=== PATIENT | male | born 1940 | race Two or more races ===

== ENCOUNTER 2018-07-18 09:14 | Inpatient (IN) | payer BC, OTHER ==
[~2018-07-18] VITALS: Ht 167.6 cm; Wt 59.9 kg
--- NOTE | 2018-07-18 09:15 | NUR ---
AAOX3, BIB DAUGHTER FROM HOME C/O HEAD LACERATION S/P SYNCOPAL EPISODE. PATIENT WAS WASHING THE DISHES AND NEXT THING, HE WAS LAYING ON THE FLOOR WITH LACERATION ON TOP OF HIS HEAD. RR IS EVEN AND UNLABORED WITH NAD NOTED. SKIN IS WARM AND DRY. AWAITING MD FOR EVAL.
[2018-07-18] MEDS ORDERED: TDAP [DIPH/PERTUSSIS/TET] 0.5 ML VIAL IM ONE ×2 (10:00→10:14)
[2018-07-18] MEDS ORDERED: IV NS 0.9% 1,000 ML BAG IV ONE (10:00)
[2018-07-18 10:06] LABS: BASOPHILS % (AUTO) 0.8 % (0.0-2.0); EOSINOPHILS % (AUTO) 0.5 % (0.0-6.0); HEMATOCRIT 41 % (39-51); LYMPHOCYTES # (AUTO) 0.6 /CMM (0.8-4.8); LYMPHOCYTES % (AUTO) 11.4 % (20.0-44.0); MEAN CORPUSCULAR HGB CONC 34 g/dl (31.0-36.0); MEAN CORPUSCULAR VOLUME 91 fL (80-96); MONOCYTES # (AUTO) 0.5 /CMM (0.1-1.30); MONOCYTES % (AUTO) 10.6 % (2.0-12.0); NEUTROPHILS # (AUTO) 3.9 /CMM (1.8-8.9); NEUTROPHILS % (AUTO) 76.7 % (43.0-81.0); PLATELET COUNT (AUTO) 192 /CMM (150-450); RED BLOOD CELL COUNT(AUTO) 4.53 MIL/uL (4.5-6.0); WHITE BLOOD COUNT (AUTO) 5.1 K/uL (4.3-11.0)
[2018-07-18 10:12] LABS: CALCIUM, SERUM 8.3 mg/dL (8.5-10.1); CARBON DIOXIDE 28 mmol/L (21-32); CHLORIDE 102 mmol/L (98-107); CREATININE 1.3 mg/dL (0.6-1.3); GLUCOSE 79 mg/dL (74-106); POTASSIUM 4.1 mmol/L (3.5-5.1); SODIUM SERUM 137 mmol/L (136-145); UREA NITROGEN, BLOOD 15 mg/dL (7-18)
[2018-07-18 10:19] LABS: ALANINE AMINOTRANSFERASE 19 U/L (12-78); ALBUMIN 3.7 g/dL (3.4-5.0); ALKALINE PHOSPHATASE 78 U/L (46-116); ASPARTATE AMINOTRANSFERASE 22 U/L (15-37); BILIRUBIN,DIRECT 0.2 mg/dL (0.0-0.2); BILIRUBIN,TOTAL 0.9 mg/dL (0.2-1.0); LIPASE 226 U/L (73-393); TOTAL PROTEIN, SERUM 7.1 g/dL (6.4-8.2)
[2018-07-18 10:50] LABS: APPEARANCE,URINE Clear (CLEAR); BILIRUBIN,URINE Negative (NEGATIVE); BLOOD, URINE Negative Ery/uL (NEGATIVE); COLOR,URINE Yellow (YELLOW); KETONES,URINE Negative (NEGATIVE); LEUKOCYTE ESTERASE ,URINE Negative (NEGATIVE); NITRITE, URINE Negative (NEGATIVE); PH,URINE 7.5 (5.0-8.0); PROTEIN,URINE Negative (NEGATIVE); UGLUCOSE Negative (NEGATIVE)
--- NOTE | 2018-07-18 10:53 | NUR ---
PATIENT WILL GO TO 310-1 (NERISSA LIM).
[2018-07-18 10:55] LABS: BACTERIA,URINE None seen /HPF (None Seen); RBC,URINE 0-3 /HPF (0-2); SQUAMOUS EPITHELIAL CELL,UR Few /HPF (None Seen)
--- NOTE | 2018-07-18 11:01 | NUR ---
Paged Linda Guerrero AMUSEMENT PARK ENTERTAINER for admission
[2018-07-18] MEDS ORDERED: IV NS 0.9% 1,000 ML IV PRN (11:58)
[2018-07-18] MEDS ORDERED: HYDROCODONE/APAP 5/325MG 1 EACH TABLET PO PRN (12:00)
[2018-07-18] MEDS ORDERED: ACETAMINOPHEN 325 MG TABLET PO PRN (12:00)
[2018-07-18] MEDS ORDERED: MAG HYDROX/AL HYDROX/SIMETH 30 ML UDC PO PRN (12:00)
[2018-07-18] MEDS ORDERED: ONDANSETRON HCL/PF 4 MG/2 ML VIAL IVP PRN (12:00)
[2018-07-18] MEDS ORDERED: MAGNESIUM HYDROXIDE 30 ML UDC PO PRN (12:00)
[2018-07-18] MEDS ORDERED: Z GUARD REMEDY 2 OZ OINT TP PRN (12:00)
--- NOTE | 2018-07-18 13:38 | NUR ---
Patient is resting comfortably in bed with eyes closed. Easily aroused. VSS
--- NOTE | 2018-07-18 14:47 | NUR ---
REPORT GIVEN TO NERISSA LIM FOR LAUREL TELE 310
--- NOTE | 2018-07-18 15:40 | NUR ---
WEB PRESS OPERATOR HELPER OFFSETMULTI OPERATION MACHINE OPERATOR NOTES Patient received from ER via hospital bed for Syncope under the care of Munira Guerrero. Alert and oriented x4, verbally responsive. Denies any pain/discomfort noted. IV on right antecubital 20G with no bleeding noted: patent and intact. Skin body assessment done. Patient is ambulatory with assist for safety precaution. No SOB/labored breathing noted or reported. Patient is stable in room air. Patient is displaying no s/s of distress. Safety precaution implemented and observed. Bed in locked and lowest position with call light within reach. Will continue to monitor and assess patient. Addendum: 07/18/18 at 1916 by KENZIE MIX RN TELE: Sinus Rhythm 66
--- NOTE | 2018-07-18 18:25 | NUR ---
[employer] CLOSING NOTES Patient remained in bed, awake, comfortable. Alert and oriented x4, verbally responsive. Denies any pain at the moment. Not in any type of distress. No SOB/labored breathing noted. Kept patient clean and dry. Encouraged to increase oral fluid intake. All needs provided and met. All due meds given and tolerated. Safety measures implemented and observed. Bed in locked and lowest position with call light within reach and bed alarm on. Will endorse to oncoming shift nurse. TELE: NORMAL SINUS RHYTHM 75 Addendum: 07/18/18 at 1855 by KENZEI MIX RN 128/49 75 18 98.2 99%RA Addendum: 07/18/18 at 1919 by KENZIE MIX RN Endorsed
--- NOTE | 2018-07-18 19:49 | NUR ---
TELE/RN RECEIVE PATIENT AWAKE, ALERT, ORIENTED, COMFORTABLE, NO C/O PAIN, NO DISTRESS NOTED, CALL LIGHT IN REACH. FALL PRECAUTION PER PROTOCOL DUE TO SYNCOPAL EPISODE AT HOME. WILL MONITOR.
[2018-07-18 20:00] VITALS: BP 149/76
[2018-07-19] VITALS: BP 143/74
[2018-07-19 04:00] VITALS: BP 143/75
--- NOTE | 2018-07-19 06:58 | NUR ---
TELE/RN PATIENT IS AWAKE, COMFORTABLE, NO DISTRESS NOTED, HAD AN ON AND OFF SLEEP THE WHOLE SHIFT DUE TO FREQUENT TOILETING, ALL NEEDS ATTENDED AT THIS TIME. WILL CONTINUE TO [place].
[2018-07-19 07:17] LABS: BASOPHILS % (AUTO) 0.8 % (0.0-2.0); EOSINOPHILS % (AUTO) 1.9 % (0.0-6.0); HEMATOCRIT 40 % (39-51); HEMOGLOBIN 13.5 g/dL (13.5-17.5); LYMPHOCYTES # (AUTO) 0.8 /CMM (0.8-4.8); LYMPHOCYTES % (AUTO) 15.6 % (20.0-44.0); MEAN CORPUSCULAR HGB CONC 34 g/dl (31.0-36.0); MEAN CORPUSCULAR VOLUME 91 fL (80-96); MONOCYTES # (AUTO) 0.6 /CMM (0.1-1.30); MONOCYTES % (AUTO) 11.3 % (2.0-12.0); NEUTROPHILS # (AUTO) 3.6 /CMM (1.8-8.9); NEUTROPHILS % (AUTO) 70.4 % (43.0-81.0); PLATELET COUNT (AUTO) 177 /CMM (150-450); RED BLOOD CELL COUNT(AUTO) 4.43 MIL/uL (4.5-6.0); WHITE BLOOD COUNT (AUTO) 5.2 K/uL (4.3-11.0)
--- NOTE | 2018-07-19 07:30 | NUR ---
ARMATURE REWINDER OPENING NOTES RECEIVE PATIENT AWAKE, ALERT, ORIENTED, NO DISTRESS NOTED, R AC #20 INTACT.CALL LIGHT IN REACH. SR 72. WILL CONTINUE TO MONITOR
[2018-07-19 07:40] LABS: CARBON DIOXIDE 26 mmol/L (21-32); CHLORIDE 107 mmol/L (98-107); CREATININE 1.1 mg/dL (0.6-1.3); GLUCOSE 90 mg/dL (74-106); PHOSPHORUS 3.2 mg/dL (2.5-4.9); POTASSIUM 4.4 mmol/L (3.5-5.1); SODIUM SERUM 141 mmol/L (136-145); UREA NITROGEN, BLOOD 14 mg/dL (7-18)
[2018-07-19 07:47] LABS: CHOLESTEROL 177 mg/dL (<200); HDL CHOLESTEROL 69 mg/dL (40-60); LDL 106 mg/dL (0-99); THYROID STIMULATING HORMONE 1.105 uIU/mL (0.358-3.74); TRIGLYCERIDES 27 mg/dL (30-150)
[2018-07-19 08:00] VITALS: BP 135/69
[2018-07-19 16:00] VITALS: BP 136/66
--- NOTE | 2018-07-19 19:15 | NUR ---
RN NOtes Received patient awake, alert and oriented x4. HOB elevated, on room air and tolerated well. Denies any pain and discomfort. IV access on right AC patent and intact with ongoing IVF infusing well. Safety measures and fall precaution in place. Will continue to monitor patient.
--- NOTE | 2018-07-19 19:30 | NUR ---
Patient remained in bed, awake, comfortable. Alert and oriented x4, verbally responsive. Denies any pain at the moment. Not in any type of distress. No SOB/labored breathing noted. d/c once cleared by neurologist.
[2018-07-19 20:00] VITALS: BP 133/58
--- NOTE | 2018-07-19 20:08 | NUR ---
RN Notes Per report from the AM nurse patient is awaiting for the neurologist to be seen before discharge. Son is at bedside, asking if the patient will be seen tonight? Followed up with the neurologist earth observations chief scientist, Sally Powell NP. She said that she will see the patient first thing in the morning around 9 AM. Patient made aware and son Clarence notified.
--- NOTE | 2018-07-19 20:30 | NUR ---
RN Notes Dr Malik came, seen and examined patient.
[2018-07-19] MEDS ORDERED: ATOR10TA PO (21:12)
[2018-07-19] MEDS ORDERED: ASPI-1152 PO (21:12)
--- NOTE | 2018-07-19 21:15 | NUR ---
RN Notes Discharge order received from Munira Cortez CAP SIZER after patient was cleared by PT, Cardio and Neurology. Patient made barrera. Son, Clarence was called and notified to pick up truck driver the patient.
--- NOTE | 2018-07-19 21:50 | NUR ---
RN Notes Patient awake, alert and oriented x4, on room air and tolerated well. Denies any pain and discomfort. Vital signs stable. Discharge instructions given to patient and son, Karim and verbalized understanding. All belongings complete and sent with the patient, belongings list signed. IV access removed and pressure dressing applied. Discharged patient with son, ambulatory in stable condition.
[2018-07-19] MEDS ORDERED: ATORVASTATIN 10 MG TABLET PO SCH (22:00)
[2018-07-20] MEDS ORDERED: ASPIRIN EC 81 MG TABLET.DR PO SCH (09:00)
== END 2018-07-19 21:50 | disposition home or self-care (01) | DRG 312 ==
LOC: ER 09:17 → TELE 15:08 → MED 07-19 19:50
PROVIDERS: ADMIT Registered Nurse; ATTEND Registered Nurse
DX: R55 Syncope and collapse (principal); I50.32 Chronic diastolic (congestive) heart failure; R00.1 Bradycardia, unspecified; S01.01XA Laceration without foreign body of scalp, initial encounter; W18.30XA Fall on same level, unspecified, initial encounter; Y93.G1 Activity, food preparation and clean up; Y92.000 Kitchen of unspecified non-institutional (private) residence as the place of occurrence of the external cause; Z85.828 Personal history of other malignant neoplasm of skin; Z85.46 Personal history of malignant neoplasm of prostate; Z90.79 Acquired absence of other genital organ(s); M25.552 Pain in left hip
CPT/HCPCS: 36415; 70450-TC; 71045-TC; 73502; 80048-TC; 80061-TC; 80076-TC; 81000-TC; 83690-TC; 83735-TC; 84100-TC; 84443-TC; 84484-TC; 85025-TC; 87081-TC; 87086-TC; 90715; 93307-TC; 93880-TC; A6402; A6403; G0378; J7030

== ENCOUNTER 2020-04-03 09:20 | Emergency (ER) | payer OTHER ==
[~2020-04-03] VITALS: Ht 167.6 cm; Wt 64.9 kg
[~2020-04-03 09:20] MED LIST: ASPI-1420 PO; ATOR10TA PO
--- NOTE | 2020-04-03 09:22 | NUR ---
PT BIB SON, AMBULATORY TO ER BED 07 C/O R SIDED FLANK PAIN AND DIFFICULTY URINATING FOR THE PAST 3 DAYS. NO OTHER COMPLAINTS ENDORSED. STABLE VITALS. AWAITING MD ZAYAS.
--- NOTE | 2020-04-03 09:28 | NUR ---
Tanesha perrin in [facility] - 04/03/[address] GUERRA AT [facility] FOR
--- NOTE | 2020-04-03 09:37 | NUR ---
PT TO RADIOLOGY FOR ABDOMEN/PELVIS CT SCAN VIA WHEELCHAIR.
[2020-04-03] MEDS ORDERED: ONDANSETRON HCL/PF 4 MG/2 ML VIAL ONE (09:40)
[2020-04-03] MEDS: IV NS 0.9% 500 ML BAG IV ONE (09:56)
[2020-04-03] MEDS: ONDANSETRON HCL/PF 4 MG/2 ML VIAL IVP ONE (09:58)
[2020-04-03 10:00] LABS: BASOPHILS # (AUTO) 0.1 /CMM (0.0-0.2); EOSINOPHILS % (AUTO) 0.6 % (0.0-6.0); HEMATOCRIT 37 % (39-51); LYMPHOCYTES # (AUTO) 1.3 /CMM (0.8-4.8); LYMPHOCYTES % (AUTO) 23.1 % (20.0-44.0); MEAN CORPUSCULAR HGB CONC 33 g/dl (31.0-36.0); MEAN CORPUSCULAR VOLUME 87 fL (80-96); MONOCYTES # (AUTO) 0.7 /CMM (0.1-1.30); NEUTROPHILS # (AUTO) 3.5 /CMM (1.8-8.9); NEUTROPHILS % (AUTO) 63.3 % (43.0-81.0); PLATELET COUNT (AUTO) 254 /CMM (150-450); RED BLOOD CELL COUNT(AUTO) 4.24 MIL/uL (4.5-6.0); WHITE BLOOD COUNT (AUTO) 5.6 K/uL (4.3-11.0)
--- NOTE | 2020-04-03 10:03 | NUR ---
DR GUERRA AT BEDSIDE FOR EVAL
[2020-04-03 10:13] LABS: ALANINE AMINOTRANSFERASE 13 U/L (12-78); ALKALINE PHOSPHATASE 108 U/L (46-116); ASPARTATE AMINOTRANSFERASE 20 U/L (15-37); BILIRUBIN,DIRECT 0.2 mg/dL (0.0-0.2); CALCIUM, SERUM 8.7 mg/dL (8.5-10.1); CARBON DIOXIDE 27 mmol/L (21-32); CHLORIDE 97 mmol/L (98-107); CREATININE 1.3 mg/dL (0.6-1.3); GLUCOSE 87 mg/dL (74-106); LIPASE 133 U/L (73-393); POTASSIUM 4.3 mmol/L (3.5-5.1); SODIUM SERUM 133 mmol/L (136-145); TOTAL PROTEIN, SERUM 7.5 g/dL (6.4-8.2); UREA NITROGEN, BLOOD 15 mg/dL (7-18)
[2020-04-03 10:29] LABS: APPEARANCE,URINE Clear (CLEAR); BILIRUBIN,URINE Negative (NEGATIVE); BLOOD, URINE Negative Ery/uL (NEGATIVE); COLOR,URINE Yellow (YELLOW); KETONES,URINE Trace (NEGATIVE); LEUKOCYTE ESTERASE ,URINE Negative (NEGATIVE); NITRITE, URINE Negative (NEGATIVE); PROTEIN,URINE Negative (NEGATIVE); UGLUCOSE Negative (NEGATIVE); UROBILINOGEN,URINE 0.2 EU/dL (0.2)
[2020-04-03 10:42] LABS: BACTERIA,URINE None seen /HPF (None Seen); RBC,URINE 0-2 /HPF (0-2); SQUAMOUS EPITHELIAL CELL,UR Few /HPF (None Seen); WBC,URINE 0-2 /HPF (0-3)
[2020-04-03 11:40] VITALS: BP 110/76
--- NOTE | 2020-04-03 11:40 | NUR ---
Patient discharged to home in stable condition. Written and verbal after care instructions given. Patient verbalizes understanding of instruction.IV removed. Catheter intact and site benign. Pressure and 4x4 applied to site. No bleeding noted.
== END 2020-04-03 11:40 | disposition home or self-care (01) ==
LOC: ER 09:24
DX: R10.84 Generalized abdominal pain (principal); R30.0 Dysuria; K59.00 Constipation, unspecified; Z98.890 Other specified postprocedural states; Z79.899 Other long term (current) drug therapy; Z79.82 Long term (current) use of aspirin
CPT/HCPCS: 36415; 71045; 74176; 80048; 80076; 81001; 83690; 84484; 85025; 85730; 93005; 96360; 99285; J7040; 81000-TC; J2405

== ENCOUNTER 2020-08-17 15:47 | Emergency (ER) | payer BC, OTHER ==
[~2020-08-17] VITALS: Ht 167.6 cm; Wt 60.8 kg
--- NOTE | 2020-08-17 15:50 | NUR ---
AZALEA, C/O WORSENING BACK PAIN X 3 WKS R/T ABDOMINAL AREA -N/V
--- NOTE | 2020-08-17 17:03 | NUR ---
DR. MCKOY AT BEDSIDE FOR EVAL.
[2020-08-17] MEDS ORDERED: MORPHINE SULFATE INJ 2 MG/ML DISP.SYRIN ONE (17:50)
[2020-08-17] MEDS ORDERED: ONDANSETRON HCL/PF 4 MG/2 ML VIAL ONE (17:50)
[2020-08-17] MEDS ORDERED: MORPHINE SULFATE INJ 2 MG/ML DISP.SYRIN IV ONE ×2 (18:00→20:30)
[2020-08-17] MEDS ORDERED: ONDANSETRON HCL/PF 4 MG/2 ML VIAL IVP ONE (18:00)
[2020-08-17 18:04] LABS: BASOPHILS # (AUTO) 0.1 /CMM (0.0-0.2); BASOPHILS % (AUTO) 1.3 % (0.0-2.0); EOSINOPHILS % (AUTO) 3.4 % (0.0-6.0); HEMATOCRIT 38 % (39-51); HEMOGLOBIN 12.3 g/dL (13.5-17.5); LYMPHOCYTES # (AUTO) 1.4 /CMM (0.8-4.8); LYMPHOCYTES % (AUTO) 25.1 % (20.0-44.0); MEAN CORPUSCULAR HGB CONC 33 g/dl (31.0-36.0); MEAN CORPUSCULAR VOLUME 87 fL (80-96); MONOCYTES # (AUTO) 0.6 /CMM (0.1-1.30); MONOCYTES % (AUTO) 11.4 % (2.0-12.0); NEUTROPHILS # (AUTO) 3.2 /CMM (1.8-8.9); NEUTROPHILS % (AUTO) 58.8 % (43.0-81.0); PLATELET COUNT (AUTO) 259 /CMM (150-450); RED BLOOD CELL COUNT(AUTO) 4.34 MIL/uL (4.5-6.0); WHITE BLOOD COUNT (AUTO) 5.4 K/uL (4.3-11.0)
[2020-08-17 18:11] LABS: CALCIUM, SERUM 8.2 mg/dL (8.5-10.1); CARBON DIOXIDE 29 mmol/L (21-32); CHLORIDE 100 mmol/L (98-107); CREATININE 1.2 mg/dL (0.6-1.3); GLUCOSE 88 mg/dL (74-106); POTASSIUM 3.9 mmol/L (3.5-5.1); SODIUM SERUM 136 mmol/L (136-145); UREA NITROGEN, BLOOD 19 mg/dL (7-18)
--- NOTE | 2020-08-17 18:15 | NUR ---
US TECH AT BEDSIDE.
[2020-08-17 18:26] LABS: ALANINE AMINOTRANSFERASE 14 U/L (12-78); ALBUMIN 3.1 g/dL (3.4-5.0); ALKALINE PHOSPHATASE 112 U/L (46-116); ASPARTATE AMINOTRANSFERASE 17 U/L (15-37); BILIRUBIN,DIRECT 0.1 mg/dL (0.0-0.2); BILIRUBIN,TOTAL 0.2 mg/dL (0.2-1.0); LIPASE 224 U/L (73-393); TOTAL PROTEIN, SERUM 7.3 g/dL (6.4-8.2)
[2020-08-17 18:27] LABS: BILIRUBIN,URINE Negative (NEGATIVE); COLOR,URINE YELLOW (YELLOW); LEUKOCYTE ESTERASE ,URINE Negative (NEGATIVE); NITRITE, URINE Negative (NEGATIVE); PROTEIN,URINE Negative (NEGATIVE); UGLUCOSE Negative (NEGATIVE); UROBILINOGEN,URINE 0.2 EU/dL (0.2)
--- NOTE | 2020-08-17 18:43 | NUR ---
CALLED RADIOLOGY FOR CT.
[2020-08-17] MEDS ORDERED: POLY17PO4 PO (20:16)
[2020-08-17] MEDS ORDERED: IBUP-1953 PO (20:17)
[2020-08-17] MEDS ORDERED: ONDANSETRON HCL/PF - ER 4 MG/2 ML VIAL IV ONE (20:30)
[2020-08-17] MEDS ORDERED: ACETAMINOPHEN ES 500 MG TABLET ONE (20:48)
[2020-08-17] MEDS ORDERED: ACETAMINOPHEN 325 MG TABLET PO ONE (21:00)
--- NOTE | 2020-08-17 21:11 | NUR ---
IV removed. Catheter intact and site benign. Pressure and 4x4 applied to site. No bleeding noted.
--- NOTE | 2020-08-17 21:11 | NUR ---
Patient discharged to home in stable condition. Written and verbal after care instructions given. Patient verbalizes understanding of instruction.
[2020-08-17 21:12] VITALS: BP 112/74
--- NOTE | 2020-08-17 21:12 | NUR ---
spoke with son regarding discharge
== END 2020-08-17 21:12 | disposition home or self-care (01) ==
LOC: ER 15:53
DX: R10.11 Right upper quadrant pain (principal); R10.31 Right lower quadrant pain; M48.54XA Collapsed vertebra, not elsewhere classified, thoracic region, initial encounter for fracture; Z98.890 Other specified postprocedural states; Z79.899 Other long term (current) drug therapy; Z79.82 Long term (current) use of aspirin
CPT/HCPCS: 36415; 71045; 74176; 76700; 80048; 80076; 81003; 83690; 84484; 85025; 85730; 93005; 96374; 96375; 99285; J2270; J2405 ×2

== ENCOUNTER 2021-02-22 09:30 | Inpatient (IN) | payer OTHER ==
[~2021-02-22] VITALS: Ht 167.6 cm; Wt 61.7 kg
[~2021-02-22 09:30] MED LIST changes: +IBUP-1953 PO; +POLY17PO4 PO
--- NOTE | 2021-02-22 09:30 | NUR ---
PT BIB SON FROM HOME C/O CHEST PRESSURE STARTED LAST NIGHT. PT IS AAOX4, NOT IN RESPIRATORY DISTRESS, HOOKED TO LEATHER TOOLER, KEPT RESTED AND COMFORTABLE. WILL CONTINUE TO MONITOR.
--- NOTE | 2021-02-22 09:44 | NUR ---
SEEN AND EXAMINED BY .
--- NOTE | 2021-02-22 09:47 | NUR ---
IV LINE ESTABLISHED BLOOD DRAWN AND SENT TO LAB.
[2021-02-22] MEDS ORDERED: ASPIRIN 325 MG TABLET ONE (09:56)
[2021-02-22] MEDS ORDERED: ASPIRIN 325 MG TABLET PO ONE (10:00)
[2021-02-22] MEDS ORDERED: NITROGLYCERIN 0.4 MG/TAB BOTTLE SL ONE (10:00)
[2021-02-22 10:04] LABS: BASOPHILS # (AUTO) 0.1 K/uL (0.0-0.2); BASOPHILS % (AUTO) 1.2 % (0.0-2.0); EOSINOPHILS % (AUTO) 1.1 % (0.0-6.0); HEMATOCRIT 43 % (39-51); HEMOGLOBIN 13.9 g/dL (13.5-17.5); LYMPHOCYTES # (AUTO) 1.8 K/uL (0.8-4.8); LYMPHOCYTES % (AUTO) 27.5 % (20.0-44.0); MEAN CORPUSCULAR HGB CONC 33 g/dl (31.0-36.0); MEAN CORPUSCULAR VOLUME 89 fL (80-96); MONOCYTES # (AUTO) 0.8 K/uL (0.1-1.30); MONOCYTES % (AUTO) 12.8 % (2.0-12.0); NEUTROPHILS # (AUTO) 3.7 K/uL (1.8-8.9); NEUTROPHILS % (AUTO) 57.4 % (43.0-81.0); PLATELET COUNT (AUTO) 255 K/uL (150-450); WHITE BLOOD COUNT (AUTO) 6.4 K/uL (4.3-11.0)
[2021-02-22 10:11] LABS: CALCIUM, SERUM 8.6 mg/dL (8.5-10.1); CARBON DIOXIDE 26 mmol/L (21-32); CHLORIDE 102 mmol/L (98-107); CREATININE 1.4 mg/dL (0.6-1.3); GLUCOSE 95 mg/dL (74-106); POTASSIUM 4.5 mmol/L (3.5-5.1); SODIUM SERUM 135 mmol/L (136-145); UREA NITROGEN, BLOOD 18 mg/dL (7-18)
[2021-02-22 10:37] LABS: MAGNESIUM 2.2 mg/dL (1.8-2.4)
--- NOTE | 2021-02-22 10:45 | NUR ---
CALLED NURSING SUP FOR TELE BED.
[2021-02-22 11:05] LABS: THYROID STIMULATING HORMONE 2.353 uIU/mL (0.358-3.74)
--- NOTE | 2021-02-22 12:16 | NUR ---
FOOD TRAY PROVIDED.
--- NOTE | 2021-02-22 12:18 | NUR ---
ROOM GIVEN 308-1
--- NOTE | 2021-02-22 12:35 | NUR ---
FATMATA AT BEDSIDE FOR EVAL.
--- NOTE | 2021-02-22 12:46 | NUR ---
REPORT GIVEN TO NERISSA VICENTE FOR LAUREL.
--- NOTE | 2021-02-22 13:05 | NUR ---
RN NOTES PATIENT TRANSFERRED TO UNIT AT ROOM 308-1 VIA [facility], ACCOMPANIED BY 2 ER NURSES. PATIENT ABLE TO AMBULATE TO BED.
[2021-02-22 13:30] VITALS: BP 143/58
--- NOTE | 2021-02-22 13:30 | NUR ---
DEVELOPMENT WRITER ADMITTING NOTES ADMITTED THIS 81-YEAR-OLD MALE FROM ER, CAME FROM HOME W/ COMPLAINT OF CHEST PAIN, SAME ADMITTING DIAGNOSIS, UNDER THE CARE AND SERVICES OF DANNIELLE SAVAGE NP. PATIENT IS A/O X4, VERBALLY RESPONSIVE AND ABLE TO MAKE NEEDS KNOWN. BREATHING EVEN AND UNLABORED ON AMBIENT AIR, NO RESPIRATORY DISTRESS. PLACED ON EXTERNAL CARDIAC MONITORING W/ READING OF MD JORDAN AWARE AT ER, NO COMPLAINT OF CHEST PAIN NOR CARDIAC DISTRESS AT THIS TIME. IV LINE ON RAC #20 INTACT AND PATENT. NO SKIN ISSUES NOTED. PATIENT IS ABLE TO AMBULATE TO BATHROOM W/ FWW. SAFETY MEASURES INSTITUTED. ORIENTED PATIENT TO USE OF CALL LIGHT BUTTON FOR STAFF ASSISTANCE. WILL CONTINUE TO MONITOR.
[2021-02-22] MEDS ORDERED: ACETAMINOPHEN 325 MG TABLET PO PRN (14:00)
[2021-02-22] MEDS ORDERED: ZOLPIDEM TARTRATE 5 MG TABLET PO PRN (14:00)
[2021-02-22] MEDS ORDERED: NITROGLYCERIN 0.4 MG/TAB BOTTLE SL PRN (14:00)
[2021-02-22] MEDS ORDERED: MAGNESIUM HYDROXIDE 30 ML UDC PO PRN (14:00)
[2021-02-22] MEDS ORDERED: ONDANSETRON HCL/PF 4 MG/2 ML VIAL IVP PRN (14:00)
[2021-02-22] MEDS ORDERED: ENOXAPARIN SODIUM 40 MG/0.4 ML DISP.SYRIN SQ SCH (14:00)
[2021-02-22] MEDS ORDERED: ENOXAPARIN SODIUM 60 MG/0.6 ML DISP.SYRIN SQ SCH (14:30)
[2021-02-22 16:00] VITALS: BP 121/64
[2021-02-22] MEDS ORDERED: AMIODARONE 150 MG in IV D5W 100 ML IV ONE (17:00)
[2021-02-22] MEDS ORDERED: AMIODARONE 450 MG in IV D5W 241 ML IV PRN (17:00)
[2021-02-22] MEDS ORDERED: AMIODARONE 450 MG in IV D5W 250 ML IV PRN (17:00)
--- NOTE | 2021-02-22 17:18 | NUR ---
RN NOTES CUSTOMS AGENT AT BEDSIDE FOR ECHO.
[2021-02-22] MEDS: APIXABAN 5 MG TABLET PO SCH (17:32)
--- NOTE | 2021-02-22 17:42 | NUR ---
RN NOTES AMIODARONE BOLUS DRIP INITIATED AND COMPLETED. VS DOCUMENTED IN SPREADSHEET. NO CARDIAC DISTRESS NOTED.
--- NOTE | 2021-02-22 17:45 | NUR ---
RN NOTES AMIO DRIP STARTED PER PROTOCOL; VS TAKEN AND DOCUMENTED ON SPREADSHEET. CURRENT RATE OF 33.33ML/HR. NO CARDIAC DISTRESS AT THIS TIME. WILL CONTINUE TO MONITOR.
--- NOTE | 2021-02-22 18:37 | NUR ---
DRY HOUSE WHEELER CLOSING NOTES PATIENT SITTING IN BED, AWAKE. PT IS A/Ox4. ON ROOM AIR AND TOLERATING WELL. BREATHING IS EVEN AND UNLABORED. NO SOB NOTED. NO S/SX OF RESPIRATORY DISTRESS. IV ACCESS ON RAC #20 PATENT AND INTACT. TELE MONITOR SHOWS ATRIAL FIBRILLATION. SAFETY MEASURES IN PLACE: BED IN LOWEST, LOCKED POSITION, BRAKES ON, WITH SIDERAILS X2 UP. WILL ENDORSE TO ONCOMING SHIFT.
--- NOTE | 2021-02-22 18:45 | NUR ---
RN NOTES PATIENT CURRENTLY IN RESTROOM AT THIS TIME.
--- NOTE | 2021-02-22 19:00 | NUR ---
RN NOTE RECEIVED PATIENT IN BED RESTING ALERT ORIENTED X4 VERBALLY RESPONSIVE ABLE TO MAKE NEEDS KNOWN,AMBULATORY WITH ASSIST,IV SITE IS ON RIGHT AC INTACT PATENT ON AMIODARONE DRIP 0.8MG/MIN. CONTINENT TO BOWEL/BLADDER,SAFETY MEASURE IMPLEMENT,CALL LIGHT WITHIN REACH,BED IN LOW POSITION AND LOCKED CONTINUE TO MONITOR.
[2021-02-22 19:58] VITALS: BP 93/57
[2021-02-22 20:00] VITALS: BP 93/57
[2021-02-22 21:00] VITALS: BP 93/57
[2021-02-23] VITALS: BP 124/64
--- NOTE | 2021-02-23 | NUR ---
RN NOT BP IS 124/64 HR 48 A-FIB CONVERTED TO BRADYCARDIA NOTIFIED DR SANTOS FIRE CLAIMS ADJUSTER HE OREDERED TO TURN OFF AMIODARONE DRIP NOTED AND CARRIED OUT.
[2021-02-23 01:00] VITALS: BP 124/64
[2021-02-23 04:18] VITALS: BP 171/78
[2021-02-23 05:00] VITALS: BP 159/71
[2021-02-23 06:24] LABS: BASOPHILS # (AUTO) 0.1 K/uL (0.0-0.2); BASOPHILS % (AUTO) 1.2 % (0.0-2.0); EOSINOPHILS % (AUTO) 2.1 % (0.0-6.0); HEMATOCRIT 39 % (39-51); LYMPHOCYTES # (AUTO) 1.8 K/uL (0.8-4.8); LYMPHOCYTES % (AUTO) 36.2 % (20.0-44.0); MEAN CORPUSCULAR HGB CONC 33 g/dl (31.0-36.0); MEAN CORPUSCULAR VOLUME 89 fL (80-96); MONOCYTES # (AUTO) 0.6 K/uL (0.1-1.30); MONOCYTES % (AUTO) 12.5 % (2.0-12.0); NEUTROPHILS # (AUTO) 2.4 K/uL (1.8-8.9); PLATELET COUNT (AUTO) 200 K/uL (150-450); RED BLOOD CELL COUNT(AUTO) 4.37 MIL/uL (4.5-6.0); WHITE BLOOD COUNT (AUTO) 4.9 K/uL (4.3-11.0)
--- NOTE | 2021-02-23 06:42 | NUR ---
RN NOTE PATIENT REMAINS ON ALERT ORIENTED X4 VERBALLY RESPONSIVE ON ROOM AIR O2:97%,NO SOB NOT ACUTE DISTRESS NOTED IV SITE IS ON RIGHT AC INTACT PATENT AMIODARONE IS OFF,AMBULATORY WITH ASSIST,CONTINENT TO BOWEL/BLADDER,KEEP CALL LIGHT WITHIN REACH,KEEP COMFORTABLE ALL NEEDS MET ENDORSE NEXT COMING SHIFT FOR CONTINUATION OF CARE.
[2021-02-23 06:54] LABS: CALCIUM, SERUM 7.9 mg/dL (8.5-10.1); CREATININE 1.3 mg/dL (0.6-1.3); MAGNESIUM 2.2 mg/dL (1.8-2.4); PHOSPHORUS 3.4 mg/dL (2.5-4.9); POTASSIUM 4.3 mmol/L (3.5-5.1)
[2021-02-23 08:00] VITALS: BP 168/74
[2021-02-23] MEDS: APIXABAN 5 MG TABLET PO SCH (08:55)
[2021-02-23] MEDS ORDERED: ASPIRIN 81 MG TAB.CHEW PO SCH (09:00)
[2021-02-23] MEDS: AMIODARONE HCL 200 MG TABLET PO SCH ×2 (09:35→13:47)
--- NOTE | 2021-02-23 10:30 | NUR ---
Shayy JARRELL NP AND DR. QUAN IN TO SEE PT. ORDERS GIVEN.
--- NOTE | 2021-02-23 12:00 | NUR ---
PT. STARTED ON CORDARONE.
[2021-02-23 13:47] VITALS: BP 157/79
--- NOTE | 2021-02-23 14:15 | NUR ---
SON IN AND DC INFO GIVEN TO PT'S SON INCLUDING ALL RXS.PAPER WORK SIGNED.HEP LOCK AND TELE REMOVED. TAKEN TO LOBBY VIA W/C ACCOMPANIED BY SON AND EDUCATIONAL TECHNOLOGY SPECIALIST.
== END 2021-02-23 14:15 | disposition home or self-care (01) | DRG 308 ==
LOC: ER 09:35 → TELE 12:20
PROVIDERS: ADMIT Nurse Practitioner Family; ATTEND Nurse Practitioner Acute Care
DX: I48.91 Unspecified atrial fibrillation (principal); N17.0 Acute kidney failure with tubular necrosis; E87.1 Hypo-osmolality and hyponatremia; M48.54XA Collapsed vertebra, not elsewhere classified, thoracic region, initial encounter for fracture; Z85.46 Personal history of malignant neoplasm of prostate; Z20.822 Contact with and (suspected) exposure to COVID-19; Z85.828 Personal history of other malignant neoplasm of skin; Z90.79 Acquired absence of other genital organ(s); Z98.890 Other specified postprocedural states; Z85.831 Personal history of malignant neoplasm of soft tissue; K44.9 Diaphragmatic hernia without obstruction or gangrene; K59.00 Constipation, unspecified; Z80.9 Family history of malignant neoplasm, unspecified; Z82.49 Family history of ischemic heart disease and other diseases of the circulatory system
CPT/HCPCS: 36415; 71045-TC; 76770-TC; 80048-TC; 80061-TC; 83735-TC; 83880; 84100-TC; 84439-TC; 84443-TC; 84484-TC; 85025-TC; 87081-TC; 93307-TC; C9803; G0378; J0282; J1650; J7050; J7060

== ENCOUNTER 2024-11-08 10:20 | Emergency (ER) | payer OTHER ==
[~2024-11-08] VITALS: Ht 167.6 cm; Wt 61.7 kg
[~2024-11-08 10:20] MED LIST changes: -ASPI-1420 PO; -ATOR10TA PO; +CYCL5TAB PO; -IBUP-1953 PO; +KETO10TA2 PO; -POLY17PO4 PO
[2024-11-08] MEDS ORDERED: CLINDAMYCIN HCL 150 MG CAPSULE ONE (10:58)
[2024-11-08] MEDS: CLINDAMYCIN HCL 150 MG CAPSULE PO ONE (11:05)
[2024-11-08] MEDS ORDERED: CLIN300C12 PO (11:06)
[2024-11-08 11:12] VITALS: BP 140/82; TEMP 97.7; O2SAT 97
== END 2024-11-08 11:12 | disposition home or self-care (01) ==
LOC: ER 10:22
DX: L03.317 Cellulitis of buttock (principal); Z85.828 Personal history of other malignant neoplasm of skin; Z90.79 Acquired absence of other genital organ(s); Z79.899 Other long term (current) drug therapy

== ENCOUNTER 2025-04-20 09:17 | Emergency (ER) | payer OTHER ==
[~2025-04-20] VITALS: Ht 167.6 cm; Wt 59.4 kg
[~2025-04-20 09:17] MED LIST changes: +CLIN300C12 PO
[2025-04-20] MEDS ORDERED: oxyCODONE/APAP (5/325 MG) 1 UDTAB TABLET ONE (10:16)
[2025-04-20] MEDS: oxyCODONE/APAP (5/325 MG) 1 UDTAB TABLET PO ONE (10:21)
[2025-04-20 13:04] VITALS: BP 141/82; TEMP 98; O2SAT 97
== END 2025-04-20 13:04 | disposition home or self-care (01) ==
LOC: ER 09:17
DX: M25.551 Pain in right hip (principal); M54.2 Cervicalgia; R51.9 Headache, unspecified; I11.9 Hypertensive heart disease without heart failure; I48.91 Unspecified atrial fibrillation; Z79.01 Long term (current) use of anticoagulants; Z85.828 Personal history of other malignant neoplasm of skin; Z85.831 Personal history of malignant neoplasm of soft tissue; Z86.73 Personal history of transient ischemic attack (TIA), and cerebral infarction without residual deficits; Z90.79 Acquired absence of other genital organ(s)
CPT/HCPCS: 70450-TC; 72125-TC; 73552; 73564-TC